=== PATIENT | female | born 1970 | race Caucasian/White ===

== ENCOUNTER → 2017-11-23 15:01 | Outpatient (CLI) | payer OTHER, MEDICAID, SELFPAY ==
--- NOTE | 2017-11-23 15:02 | DI.US.S_ITS ---
ULTRASOUND OF LEFT BREAST: 11/23/2017 CLINICAL: Patient returns today to evaluate a density in the left breast. Comparison is made to exams dated: 11/23/2017 mammogram, 01/13/2017 ultrasound, and 01/13/2017 mammogram - [facility]. Color flow ultrasound of the left breast was performed on the areas of interest. Yu scale images of the real-time examination were reviewed. There is a benign 2.4 x 1.7 x 1.2 cm oval cyst in the left breast at 2 o'clock middle depth. This oval cyst is anechoic. This abnormality is increased in size from the ultrasound dated 01/13/17 where the cyst measured 1.6 x 1.1 x 1.7 cm and correlates as palpated and with mammography findings. Color flow imaging demonstrates that there is no increase in vascularity. There also is a benign 0.9 cm oval cyst in the left breast at 3 o'clock posterior depth. This oval cyst is anechoic. Color flow imaging demonstrates that there is no increase in vascularity. IMPRESSION: BENIGN There is no sonographic evidence of malignancy. The 2.4 cm oval cyst in the left breast at 2 o'clock middle depth is benign. The 0.9 cm oval cyst in the left breast at 3 o'clock posterior depth is benign. A 1 year screening mammogram is recommended. This exam was interpreted at Station ID: [id number]. Electronically Signed By: Renetta Price M.D. lk/:11/23/2017 17:08:45 copy to: BLANCA PERAZA letter sent: Clinical Evaluation Ultrasound BI-RADS: 2 Benign
--- NOTE | 2017-11-23 15:02 | DI.MG.S_ITS ---
UNILATERAL LEFT DIGITAL DIAGNOSTIC MAMMOGRAM 3D/2D POST MASTECTOMY: 11/23/2017 CLINICAL: Left breast lump. Comparison is made to exams dated: 01/13/2017 mammogram, 01/07/2017 mammogram, and 01/05/2016 mammogram - [facility]. The tissue of the left breast is extremely dense, which lowers the sensitivity of mammography. There is a 1.9 cm mass in the left breast at 4 o'clock middle depth. This likely correlates as palpated. No other significant masses or calcifications are seen in the breast. IMPRESSION: INCOMPLETE: NEEDS ADDITIONAL IMAGING EVALUATION The 1.9 cm mass in the left breast is indeterminate. An ultrasound is recommended. This exam was interpreted at Station ID: [id number]. NOTE: For mammograms, a report in lay terms will be sent to the patient. Approximately 15% of breast malignancies will not be visualized mammographically. In the management of a palpable breast mass, a negative mammogram must not discourage biopsy of a clinically suspicious lesion. Electronically Signed By: Renetta Price M.D. lk/:11/23/2017 15:27:54 copy to: BLANCA PERAZA letter sent: Additional Imaging Needed ACR BI-RADS Category 0: Incomplete 3340F
== END ==
PROVIDERS: PCP Family Medicine; Visit Provider Family Medicine
DX: R92.8 Other abnormal and inconclusive findings on diagnostic imaging of breast (principal); N63.20 Unspecified lump in the left breast, unspecified quadrant
CPT/HCPCS: 76642; 77065; G0279

== ENCOUNTER → 2017-11-29 11:34 | Outpatient (CLI) | payer OTHER, MEDICAID, SELFPAY ==
[2017-11-29 11:50] LABS: Add Manual Diff / Slide Review NO; Basophils Percent Auto 1.5 % (0-2); Eosinophils Percent Auto 1.3 % (2-4); Hematocrit 38.8 % (36-46); Hemoglobin 13.1 g/dL (12.0-16.0); Lymphocytes Percent Auto 21.3 % (25-40); Mean Corpuscular HGB Conc 33.8 % (30-36); Mean Corpuscular Hemoglobin 30.9 PG (26-34); Mean Corpuscular Volume 91.6 fL (80-100); Neutrophils Absolute Auto 4200 /uL (3000-5900); Neutrophils Percent Auto 68.9 % (50-75); Platelet Count 258 X10^3/uL (150-400); Red Blood Cell Count 4.24 X10^6/uL (4.0-5.2); Red Cell Distribution Width 12.5 % (11.6-14.8); White Blood Cell Count 6.1 X10^3/uL (4.5-11.0)
[2017-11-29 12:07] LABS: Alanine Aminotransferase 23 IU/L (9-52); Albumin 4.4 g/dL (3.5-5.0); Albumin Globulin Ratio 1.6 (1.0-2.8); Alkaline Phosphatase 43 U/L (38-126); Aspartate Aminotransferase 22 IU/L (14-36); Bilirubin Total 0.5 mg/dL (0.2-1.3); Blood Urea Nitrogen 15 mg/dL (7-17); Calcium 9.4 mg/dL (8.4-10.2); Carbon Dioxide 27 mmol/L (22-32); Chloride 102 mmol/L (98-107); Estimated Glomerular Filt Rate > 60.0 mL/min (>60); Globulin 2.7 g/dL (1.7-4.1); Glucose 106 mg/dL (70-100); HEMOLYSIS < 15 (0-50); Potassium 4.2 mmol/L (3.4-5.1); Sodium 138 mmol/L (137-145); Total Protein 7.1 g/dL (6.3-8.2)
[2017-12-01 15:32] LABS: Cancer Antigen 27.29 23 U/mL (< 38)
== END ==
PROVIDERS: PCP Family Medicine; Visit Provider Nurse Practitioner Gerontology
DX: C50.911 Malignant neoplasm of unspecified site of right female breast (principal)
CPT/HCPCS: 36415; 80053; 85025; 86300

== ENCOUNTER → 2017-11-29 11:55 | Outpatient (CLI) | payer OTHER, MEDICAID, SELFPAY ==
--- NOTE | 2017-11-29 11:57 | DI.US.S_ITS ---
PROCEDURE: US PELVIC COMPLETE INDICATIONS: Irregular menses TECHNIQUE: Real-time scanning was performed of the pelvic organs, with image documentation. Additional endovaginal scanning was necessary due to incomplete visualization of the adnexal and endometrial structures by transabdominal scanning. COMPARISON: [facility], US, PELVIC COMPLETE, 04/02/2014, 12:36. [facility], CT, CHEST/ABD/PEL WITH CONTRAST, 12/04/2013, 12:16. [facility], US, PELVIC COMPLETE, 05/28/2014, 9:03. FINDINGS: Transabdominal scanning: Limited scanning through the kidneys shows no hydronephrosis. No pathologic free abdominal or pelvic fluid. Endovaginal scanning: Uterus: Uterus is normal in size at 7.3 x 4.9 x 5.0 cm. The endometrium measures 15.9 mm in combined thickness. Ovaries: Right ovary measures 30 x 27.3 mm. There is a focus of heteroechogenicity measuring 16 x 23 x 19 mm within the right ovary. Left ovary measures 20 x 10 x 17 mm. IMPRESSION: 1. Complex cyst is present within the right ovary as above. It is noted that simple cyst or prominent follicle is noted within the right ovary on prior exam. Dictated by: Isa Montaño M.D. on 11/29/2017 at 17:43 Approved by: Isa Montaño M.D. on 11/29/2017 at 17:44
== END ==
PROVIDERS: PCP Family Medicine; Visit Provider Family Medicine
DX: N92.6 Irregular menstruation, unspecified (principal); N83.291 Other ovarian cyst, right side
CPT/HCPCS: 76830; 76856

== ENCOUNTER → 2018-07-01 12:34 | Outpatient (CLI) | payer OTHER, MEDICAID, SELFPAY ==
[2018-07-01 13:08] LABS: Add Manual Diff / Slide Review NO; Basophils Absolute Auto 100 /uL (0-100); Eosinophils Absolute Auto 300 /uL (0-450); Eosinophils Percent Auto 3.9 % (2-4); Hematocrit 38.7 % (36-46); Hemoglobin 12.8 g/dL (12.0-16.0); Lymphocytes Absolute Auto 1800 /uL (1100-4500); Lymphocytes Percent Auto 23.6 % (25-40); Mean Corpuscular Hemoglobin 30.3 PG (26-34); Mean Corpuscular Volume 91.8 fL (80-100); Monocytes Absolute Auto 500 /uL (0-900); Monocytes Percent Auto 6.4 % (3-14); Neutrophils Absolute Auto 5000 /uL (1500-7000); Neutrophils Percent Auto 65.1 % (50-75); Platelet Count 301 X10^3/uL (150-400); Red Blood Cell Count 4.21 X10^6/uL (4.0-5.2); White Blood Cell Count 7.7 X10^3/uL (4.5-11.0)
[2018-07-01 13:20] LABS: Alanine Aminotransferase 25 IU/L (9-52); Albumin 4.4 g/dL (3.5-5.0); Albumin Globulin Ratio 1.5 (1.0-2.8); Alkaline Phosphatase 49 U/L (38-126); Aspartate Aminotransferase 22 IU/L (14-36); Bilirubin Total 0.3 mg/dL (0.2-1.3); Blood Urea Nitrogen 13 mg/dL (7-17); Calcium 9.3 mg/dL (8.4-10.2); Carbon Dioxide 27 mmol/L (22-32); Chloride 100 mmol/L (98-107); Estimated Glomerular Filt Rate > 60.0 mL/min (>60); Globulin 2.9 g/dL (1.7-4.1); Glucose 77 mg/dL (70-100); HEMOLYSIS < 15 (0-50); Potassium 3.7 mmol/L (3.4-5.1); Sodium 138 mmol/L (137-145); Total Protein 7.3 g/dL (6.3-8.2)
[2018-07-04 16:45] LABS: Cancer Antigen 27.29 20 U/mL (< 38)
== END ==
PROVIDERS: PCP Family Medicine; Visit Provider Nurse Practitioner Gerontology
DX: D05.10 Intraductal carcinoma in situ of unspecified breast (principal)
CPT/HCPCS: 36415; 80053; 85025; 86300

== ENCOUNTER → 2018-11-24 15:02 | Outpatient (CLI) | payer OTHER, MEDICAID, SELFPAY ==
--- NOTE | 2018-11-24 | DI.MG.S_ITS ---
UNILATERAL LEFT DIGITAL SCREENING MAMMOGRAM 3D/2D WITH CAD: 11/24/2018 CLINICAL: Routine screening. Personal history of right breast cancer. Comparison is made to exams dated: 11/23/2017 mammogram, 01/13/2017 mammogram, and 01/07/2017 mammogram - [facility]. The tissue of left breast is extremely dense, which lowers the sensitivity of mammography. Current study was also evaluated with a Computer Aided Detection (CAD) system. No significant masses, calcifications, or other findings are seen in the breast. There has been no significant interval change. IMPRESSION: NEGATIVE There is no mammographic evidence of malignancy. A 1 year screening mammogram is recommended. This exam was interpreted at Station ID: [id number]. NOTE: For mammograms, a report in lay terms will be sent to the patient. Approximately 15% of breast malignancies will not be visualized mammographically. In the management of a palpable breast mass, a negative mammogram must not discourage biopsy of a clinically suspicious lesion. Electronically Signed By: Sunny franz/pieter:11/24/2018 16:57:02 copy to: BLANCA PERAZA letter sent: Normal Exam ACR BI-RADS Category 1: Negative [id number]
== END ==
PROVIDERS: Family Provider Nurse Practitioner Gerontology; PCP Family Medicine; Visit Provider Family Medicine
DX: Z12.31 Encounter for screening mammogram for malignant neoplasm of breast (principal); Z85.3 Personal history of malignant neoplasm of breast
CPT/HCPCS: 77063; 77067

== ENCOUNTER → 2019-01-03 13:40 | Outpatient (CLI) | payer OTHER, MEDICAID, SELFPAY ==
[2019-01-03 13:52] LABS: Add Manual Diff / Slide Review NO; Basophils Absolute Auto 100 /uL (0-100); Basophils Percent Auto 1.1 % (0-2); Eosinophils Absolute Auto 200 /uL (0-450); Eosinophils Percent Auto 2.7 % (2-4); Hematocrit 37.7 % (36-46); Lymphocytes Absolute Auto 1800 /uL (1100-4500); Lymphocytes Percent Auto 26.7 % (25-40); Mean Corpuscular HGB Conc 34.5 % (30-36); Mean Corpuscular Hemoglobin 31.1 PG (26-34); Mean Corpuscular Volume 90.3 fL (80-100); Monocytes Absolute Auto 600 /uL (0-900); Neutrophils Absolute Auto 4100 /uL (1500-7000); Neutrophils Percent Auto 60.5 % (50-75); Platelet Count 225 X10^3/uL (150-400); Red Blood Cell Count 4.18 X10^6/uL (4.0-5.2); Red Cell Distribution Width 12.4 % (11.6-14.8); White Blood Cell Count 6.7 X10^3/uL (4.5-11.0)
[2019-01-03 14:09] LABS: Alanine Aminotransferase 18 IU/L (9-52); Albumin 4.3 g/dL (3.5-5.0); Albumin Globulin Ratio 1.5 (1.0-2.8); Alkaline Phosphatase 42 U/L (38-126); Aspartate Aminotransferase 24 IU/L (14-36); Bilirubin Total 0.4 mg/dL (0.2-1.3); Blood Urea Nitrogen 15 mg/dL (7-17); Calcium 9.3 mg/dL (8.4-10.2); Carbon Dioxide 30 mmol/L (22-32); Chloride 100 mmol/L (98-107); Estimated Glomerular Filt Rate > 60.0 mL/min (>60); Globulin 2.8 g/dL (1.7-4.1); Glucose 80 mg/dL (70-100); HEMOLYSIS < 15 (0-50); Potassium 4.1 mmol/L (3.4-5.1); Sodium 138 mmol/L (137-145); Total Protein 7.1 g/dL (6.3-8.2)
== END ==
PROVIDERS: PCP Family Medicine
DX: D05.10 Intraductal carcinoma in situ of unspecified breast (principal)
CPT/HCPCS: 36415; 80053; 85025

== ENCOUNTER → 2019-01-09 13:00 | Oncology outpatient (ONC) | payer OTHER, MEDICAID, SELFPAY ==
--- NOTE | 2017-12-05 08:18 | ONC.APRN.PN ---
Assessment and Plan (1) Ductal carcinoma in situ (DCIS) of breast Onset Date: 09/04/13 Problem details: ER neg, CO neg, KI-67 high 50%, HER-2, positive 3+, negative for P63,Actin,myosin Current visit: No Status: None 12/05/17 08:20 The patient is a 46 year old Female who is being seen in the clinic 12/05/2017 for 6 month follow up. Leticia remains in survelliance for right-sided microinvasive ERCB 2 like breast cancer (T equal to 1 mm). Patient remains in clinical remission since her diagnosis was made in 2013. No clinical signs or symptoms of disease recurrence on exam today. She does have palpable pinpoint soft mass in her left breast at the 2 o'clock position which does correlate with ultrasound. I have instructed patient to continue with monthly self breast exams return to clinic for any changes. Otherwise return to clinic in 6 months time at which time we will repeat left breast exam. Any further changes we will discuss another diagnostic mammogram at 6 months versus continuing with annual screening. Reassuringly CBC CMP unremarkable. CA 27-29 remains low at 23. Patient agrees with the above plan of care. Will work on sleep hygiene which we reviewed at todays visit. Follow-up with Gynecology regarding right ovarian cyst identified on pelvic ultrasound. Primary care has sent a referral for gynecology. 12/05/17 11:48 - Time Spent with Patient 35 mins PN -Subjective Interval history: The patient is a 46 year old Female who is being seen in the clinic 06/08/17 for 6 month follow up. Leticia remains in survelliance for right-sided microinvasive ERCB 2 like breast cancer (T equal to 1 mm). S/P right mastectomy. Patient remains in clinical remission since her diagnosis was made in 2013. Leticia had noticed some changes in her left breast specificaly feeling more lumpy. She was evaluated by her primary care provider who ordered diagnostic unilateral left breast mammogram. Mammogram identified a 1.9 cm mass in the left breast at 4 o'clock. Patient then went on for ultrasound of left breast which was without evidence of malignancy. Ultrasound identified a 2.4 cm oval cyst in the left breast at 2 o'clock. Also a 0.9 cm oval cyst in the left breast at 3 o'clock. Patient also underwent a pelvic ultrasound due to irregular menses. Complex cyst was identified within the right ovary. Her primary care provider has set the patient up for referral to gynecology today. 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 Having some anxiety also not sleeping well. 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 She is working on sleep hygiene. She is self proclaimed night owl she is trying to exercise more and get in a good night time routine to accommodate better sleep. As noted above. Irregular. Not having any hot flashes. Activity tolerance is very good. Appetite is stable. No new pain. No new lumps or bumps. No headaches. No change in bladder or bowel habits. Past Medical History The patient's past medical history is significant for: 1) Right-sided microinvasive breast cancer. Diagnosis age 43. Diagnosis surgery: 08/29/2013. Stereotactic core needle biopsy. 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 ER positive at 2%. 10/11/2013. Partial mastectomy. Pathology confirming extensive high-grade DCIS measuring 15 mm. In addition microinvasion identified measuring 1 mm. IHC on the invasive compounded were negative for ER and CO receptor. Ki-67 50%. HER-2 3+. 11/01/2016. Reexcision with sentinel node procedure. Margins clear. Or sentinel lymph nodes identified all negative for disease. 01/03/2015. Right-sided simple mastectomy. Pathology confirming residual DCIS high-grade measuring up to 22 mm. Posterior surgical margin clear. No evidence of invasive disease. Clinical staging workup: 12/04/2013. CT chest abdomen pelvis with contrast. No evidence of metastatic disease. 12/04/2013. Bone scan full-body. No evidence of metastatic disease. 12/11/2013. MRI of the breast. Left breast showing no focal abnormality. Right breast showing abnormal enhancement involving the parenchymal upper outer and upper inner quadrant extending from the chest wall anterior to just below the nipple. No axillary adenopathy seen Prognosis/risk factors: Father with a known BRCA1 (3829 delT) mutation. 11/27/2013. Patient genetically tested for this mutation through [employer]. No mutation detected. Patient also tested for BRCA1 and BRCA2. The mutation identified. Surveillance: Yearly left-sided mammogram typically occurring in December. Results - Imaging Additional studies: Procedures Subtotal mastectomy (10/11/13) Unilateral simple mastectomy (01/03/14) Home Medications and Allergies Home Medications Medication Instructions Recorded Confirmed Type cholecalciferol (vitamin D3) 1,000 unit PO DAILY 12/05/17 12/05/17 History [Vitamin D3] melatonin 5 mg PO BEDTIME PRN 12/05/17 12/05/17 History Allergies Allergy/AdvReac Type Severity Reaction Status Date / Time No Known Drug Allergies Allergy Verified 11/10/17 13:54 Exam Narrative: well appearing - Constitutional positive no acute distress - Routine HEENT Exam Head: Present: normocephalic, atraumatic Eye: Present: EOMI, PERRL, normal accommodation. Absent: conjunctival icterus, scleral injection ENT: Present: mucous membranes moist, oropharynx clear - Routine Neck Exam Present: supple. Absent: lymphadenopathy - Routine Chest/Breast/Axilla Exam Chest wall exam standard: Absent: tenderness, mass Breast: Present: mass, right mastectomy. Absent: tenderness, induration Axillae: Absent: lymphadenopathy, mass, tenderness Comments: small pinpoint soft mass left breast 2:00 correlates with left breast ultrasound. Non tender, no skin changes, no nipple discharge, no axillary adenopathy. - Routine Respiratory Exam Present: Clear to auscultation bilaterally - Routine Cardiovascular Exam Present: RRR, S1, S2 - Routine Abdominal Exam Present: soft, normoactive bowel sounds. Absent: tenderness, organomegaly - Routine Extremities Exam Absent: edema, calf tenderness - Routine Skin Exam Present: intact, normal turgor. Absent: petechiae - Routine Neurological Exam Present: alert, oriented X3 - Routine Psychiatric Exam Present: normal affect
[2017-12-05 11:06] VITALS: BP 125/80; PULSE 76; RESP 18; TEMP 36.2; O2SAT 100
--- NOTE | 2018-07-04 10:03 | PC.NURSE ---
labs stable, provider visit 07/11
[2018-07-11 15:53] VITALS: BP 139/86; PULSE 80; RESP 18; TEMP 36.3; O2SAT 99
--- NOTE | 2018-07-11 16:26 | ONC.APRN.PN ---
PN -Subjective Interval history: The patient is a 48 year old Female who is being seen in the clinic 07/11/2018 for 6 month follow up. Leticia remains in survelliance for right-sided microinvasive ERCB 2 like breast cancer (T equal to 1 mm). S/P right mastectomy. Patient remains in clinical remission since her diagnosis was made in 2013. Most recent unilateral mammogram was November 2017 which was without evidence of malignancy. Patient offers no changes in her health since previous visit. She states she is just getting over a cold. She denies any new lumps or bumps, no unexplained pain. No headaches. No skin changes. No change in activity tolerance, no change in appetite, weight is stable. Specifically no early satiety. No issues with bladder or bowels. Past Medical History The patient's past medical history is significant for: 1) Right-sided microinvasive breast cancer. Diagnosis age 43. Diagnosis surgery: 08/29/2013. Stereotactic core needle biopsy. 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 ER positive at 2%. 10/11/2013. Partial mastectomy. Pathology confirming extensive high-grade DCIS measuring 15 mm. In addition microinvasion identified measuring 1 mm. IHC on the invasive compounded were negative for ER and CO receptor. Ki-67 50%. HER-2 3+. 11/01/2016. Reexcision with sentinel node procedure. Margins clear. Or sentinel lymph nodes identified all negative for disease. 01/03/2015. Right-sided simple mastectomy. Pathology confirming residual DCIS high-grade measuring up to 22 mm. Posterior surgical margin clear. No evidence of invasive disease. Clinical staging workup: 12/04/2013. CT chest abdomen pelvis with contrast. No evidence of metastatic disease. 12/04/2013. Bone scan full-body. No evidence of metastatic disease. 12/11/2013. MRI of the breast. Left breast showing no focal abnormality. Right breast showing abnormal enhancement involving the parenchymal upper outer and upper inner quadrant extending from the chest wall anterior to just below the nipple. No axillary adenopathy seen Prognosis/risk factors: Father with a known BRCA1 (3829 delT) mutation. 11/27/2013. Patient genetically tested for this mutation through [employer]. No mutation detected. Patient also tested for BRCA1 and BRCA2. The mutation identified. Surveillance: Yearly left-sided mammogram typically occurring in December. Home Medications and Allergies Home Medications Medication Instructions Recorded Confirmed Type cholecalciferol (vitamin D3) 1,000 unit PO DAILY 12/05/17 12/05/17 History [Vitamin D3] melatonin 5 mg PO BEDTIME PRN 12/05/17 12/05/17 History Allergies Allergy/AdvReac Type Severity Reaction Status Date / Time No Known Drug Allergies Allergy Verified 11/10/17 13:54 Exam Vital signs: Vital Signs Temp Pulse Resp BP Pulse Ox 07/11/18 15:53 97.3 F L 80 18 139/86 99 Intake and Output 07/11/18 07/11/18 07/11/18 07:59 15:59 23:59 Other: Weight 67.4 kg Patient Weight 07/12/18 07:59 Weight 67.4 kg - Constitutional positive no acute distress - Routine HEENT Exam Eye: Present: conjunctivae pink. Absent: conjunctival icterus, scleral injection - Routine Neck Exam Present: supple. Absent: lymphadenopathy - Routine Chest/Breast/Axilla Exam Chest wall exam standard: Absent: tenderness, mass Breast: Present: right mastectomy. Absent: tenderness, induration, mass Axillae: Absent: lymphadenopathy, mass, tenderness - Routine Respiratory Exam Present: Clear to auscultation bilaterally. Absent: rales, rhonchi, wheezes - Routine Cardiovascular Exam Present: RRR, S1, S2. Absent: murmur, gallop, rubs, JVD - Routine Abdominal Exam Present: soft, normoactive bowel sounds. Absent: tenderness, distended, organomegaly - Routine Extremities Exam Absent: edema, calf tenderness - Routine Skin Exam Present: intact, normal turgor - Routine Neurological Exam Present: alert, oriented X3 - Routine Psychiatric Exam Present: normal affect Results - Imaging Additional studies: Procedures Subtotal mastectomy (10/11/13) Unilateral simple mastectomy (01/03/14) Assessment and Plan (1) Ductal carcinoma in situ (DCIS) of breast Onset Date: 09/04/13 Problem details: ER neg, CO neg, KI-67 high 50%, HER-2, positive 3+, negative for P63,Actin,myosin Current visit: No Status: Acute The patient is a 48-year-old female who carries a diagnosis of ER negative, CO negative, HER2 negative right breast cancer. Reassuringly on exam today she has no clinical signs or symptoms to suggest disease recurrence. Unilateral mammogram November 2017 was without evidence of malignancy. CBC, CMP unremarkable, CA 27-29 remains appropriately low at 20. Continue with annual screening unilateral mammograms which will be due this November. Return to clinic in 6 months time for provider visit, CBC, CMP, CA 27-29.
--- NOTE | 2018-07-11 16:31 | P.PNONC_ITS ---
PN -Subjective Interval history: The patient is a 48 year old Female who is being seen in the clinic 07/11/2018 for 6 month follow up. Leticia remains in survelliance for right-sided microinvasive ERCB 2 like breast cancer (T equal to 1 mm). S/P right mastectomy. Patient remains in clinical remission since her diagnosis was made in 2013. Most recent unilateral mammogram was November 2017 which was without evidence of malignancy. Patient offers no changes in her health since previous visit. She states she is just getting over a cold. She denies any new lumps or bumps, no unexplained pain. No headaches. No skin changes. No change in activity tolerance, no change in appetite, weight is stable. Specifically no early satiety. No issues with bladder or bowels. Past Medical History The patient's past medical history is significant for: 1) Right-sided microinvasive breast cancer. Diagnosis age 43. Diagnosis surgery: 08/29/2013. Stereotactic core needle biopsy. 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 ER positive at 2%. 10/11/2013. Partial mastectomy. Pathology confirming extensive high-grade DCIS measuring 15 mm. In addition microinvasion identified measuring 1 mm. IHC on the invasive compounded were negative for ER and NC receptor. Ki-67 50%. HER-2 3+. 11/01/2016. Reexcision with sentinel node procedure. Margins clear. Or sentinel lymph nodes identified all negative for disease. 01/03/2015. Right-sided simple mastectomy. Pathology confirming residual DCIS high-grade measuring up to 22 mm. Posterior surgical margin clear. No evidence of invasive disease. Clinical staging workup: 12/04/2013. CT chest abdomen pelvis with contrast. No evidence of metastatic disease. 12/04/2013. Bone scan full-body. No evidence of metastatic disease. 12/11/2013. MRI of the breast. Left breast showing no focal abnormality. Right breast showing abnormal enhancement involving the parenchymal upper outer and upper inner quadrant extending from the chest wall anterior to just below the nipple. No axillary adenopathy seen Prognosis/risk factors: Father with a known BRCA1 (3829 delT) mutation. 11/27/2013. Patient genetically tested for this mutation through [employer]. No mutation detected. Patient also tested for BRCA1 and BRCA2. The mutation identified. Surveillance: Yearly left-sided mammogram typically occurring in December. Home Medications and Allergies Home Medications Medication Instructions Recorded Confirmed Type cholecalciferol (vitamin D3) 1,000 unit PO DAILY 12/05/17 12/05/17 History [Vitamin D3] melatonin 5 mg PO BEDTIME PRN 12/05/17 12/05/17 History Allergies Allergy/AdvReac Type Severity Reaction Status Date / Time No Known Drug Allergies Allergy Verified 11/10/17 13:54 Exam Vital signs: Vital Signs Temp Pulse Resp BP Pulse Ox 07/11/18 15:53 97.3 F L 80 18 139/86 99 Intake and Output 07/11/18 07/11/18 07/11/18 07:59 15:59 23:59 Other: Weight 67.4 kg Patient Weight 07/12/18 07:59 Weight 67.4 kg - Constitutional positive no acute distress - Routine HEENT Exam Eye: Present: conjunctivae pink. Absent: conjunctival icterus, scleral injection - Routine Neck Exam Present: supple. Absent: lymphadenopathy - Routine Chest/Breast/Axilla Exam Chest wall exam standard: Absent: tenderness, mass Breast: Present: right mastectomy. Absent: tenderness, induration, mass Axillae: Absent: lymphadenopathy, mass, tenderness - Routine Respiratory Exam Present: Clear to auscultation bilaterally. Absent: rales, rhonchi, wheezes - Routine Cardiovascular Exam Present: RRR, S1, S2. Absent: murmur, gallop, rubs, JVD - Routine Abdominal Exam Present: soft, normoactive bowel sounds. Absent: tenderness, distended, organomegaly - Routine Extremities Exam Absent: edema, calf tenderness - Routine Skin Exam Present: intact, normal turgor - Routine Neurological Exam Present: alert, oriented X3 - Routine Psychiatric Exam Present: normal affect Results - Imaging Additional studies: Procedures Subtotal mastectomy (10/11/13) Unilateral simple mastectomy (01/03/14) Assessment and Plan (1) Ductal carcinoma in situ (DCIS) of breast Onset Date: 09/04/13 Problem details: ER neg, NC neg, KI-67 high 50%, HER-2, positive 3+, negative for P63,Actin,myosin Current visit: No Status: Acute The patient is a 48-year-old female who carries a diagnosis of ER negative, NC negative, HER2 negative right breast cancer. Reassuringly on exam today she has no clinical signs or symptoms to suggest disease recurrence. Unilateral mammogram November 2017 was without evidence of malignancy. CBC, CMP unremarkable, CA 27-29 remains appropriately low at 20. Continue with annual screening unilateral mammograms which will be due this November. Return to clinic in 6 months time for provider visit, CBC, CMP, CA 27-29.
[2019-01-09 13:03] VITALS: BP 121/78; PULSE 71; RESP 16; TEMP 37.1; O2SAT 100
--- NOTE | 2019-01-09 13:25 | ONC.PN ---
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 That area was ER negative. She did not have any radiation or hormone therapy. Since her last visit, she has been feeling generally well. She has no specific complaints today. She has not noticed any changes in the chest wall or in the left breast. She has not noticed any adenopathy. No new aches or pains. No fevers chills or sweats. Appetite and energy level have been good. No shortness of breath or cough. She denies any other changes in her health. She is otherwise quite healthy. She is not taking any prescription medications. Past Medical History The patient's past medical history is significant for: 1) Right-sided microinvasive breast cancer. Diagnosis age 43. Diagnosis surgery: 08/29/2013. Stereotactic core needle biopsy. 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 ER positive at 2%. 10/11/2013. Partial mastectomy. Pathology confirming extensive high-grade DCIS measuring 15 mm. In addition microinvasion identified measuring 1 mm. IHC on the invasive compounded were negative for ER and LA receptor. Ki-67 50%. HER-2 3+. 11/01/2016. Reexcision with sentinel node procedure. Margins clear. Or sentinel lymph nodes identified all negative for disease. 01/03/2015. Right-sided simple mastectomy. Pathology confirming residual DCIS high-grade measuring up to 22 mm. Posterior surgical margin clear. No evidence of invasive disease. Prognosis/risk factors: Father with a known BRCA1 (3829 delT) mutation. 11/27/2013. Patient genetically tested for this mutation through [employer]. No mutation detected. Patient also tested for BRCA1 and BRCA2. The mutation identified. Surveillance: Yearly left-sided mammogram typically occurring in December. Home Medications and Allergies Home Medications Medication Instructions Recorded Confirmed Type cholecalciferol (vitamin D3) 1,000 unit PO DAILY 12/05/17 01/09/19 History [Vitamin D3] melatonin 5 mg PO BEDTIME PRN 12/05/17 01/09/19 History Allergies Allergy/AdvReac Type Severity Reaction Status Date / Time No Known Drug Allergies Allergy Verified 11/10/17 13:54 Exam Vital signs: Vital Signs Temp Pulse Resp BP Pulse Ox 01/09/19 13:03 98.7 F 71 16 121/78 100 Intake and Output 01/08/19 01/09/19 01/09/19 23:59 07:59 15:59 Other: Weight 68.7 kg Patient Weight 01/09/19 23:59 Weight 68.7 kg - Constitutional positive no acute distress, positive average body habitus - Routine HEENT Exam Head: Present: normocephalic, atraumatic Eye: Present: EOMI, PERRL. Absent: conjunctival icterus, scleral injection ENT: Present: mucous membranes moist, oropharynx clear - Routine Neck Exam Present: supple. Absent: lymphadenopathy, thyromegaly - Routine Chest/Breast/Axilla Exam Breast: Present: right mastectomy Comments: No masses in the left breast. No axillary adenopathy on either side. - Routine Respiratory Exam Present: Clear to auscultation bilaterally. Absent: rales, wheezes - Routine Cardiovascular Exam Present: RRR, S1, S2. Absent: murmur - Routine Abdominal Exam Present: soft, normoactive bowel sounds. Absent: tenderness, organomegaly, mass - Routine Extremities Exam Absent: cyanosis, clubbing, edema - Routine Back/Spine Exam Back/Spine: Absent: vertebral tenderness - Routine Skin Exam Present: intact. Absent: petechiae, rash - Routine Neurological Exam Present: alert, oriented X3 - Routine Psychiatric Exam Present: normal affect, normal thought process Results - Imaging Additional studies: Procedures Subtotal mastectomy (10/11/13) Unilateral simple mastectomy (01/03/14) Assessment and Plan (1) Ductal carcinoma in situ (DCIS) of breast Onset Date: 09/04/13 Problem details: ER neg, LA neg, KI-67 high 50%, HER-2, positive 3+, negative for P63,Actin,myosin Current visit: No Status: Acute The patient is a 48-year-old female who carries a diagnosis of ER negative, LA negative, HER2 negative right breast cancer. She is now more than 5 years out from her diagnosis. She has no evidence of disease and is doing well. At this point, she should have an annual mammogram and breast exam. The patient would prefer to do this with her primary provider. I will not schedule a follow-up appointment for her but would be happy to see her again in the future should new problems arise.
--- NOTE | 2019-01-09 13:28 | P.PNONC_ITS ---
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 That area was ER negative. She did not have any radiation or hormone therapy. Since her last visit, she has been feeling generally well. She has no specific complaints today. She has not noticed any changes in the chest wall or in the left breast. She has not noticed any adenopathy. No new aches or pains. No fevers chills or sweats. Appetite and energy level have been good. No shortness of breath or cough. She denies any other changes in her health. She is otherwise quite healthy. She is not taking any prescription medications. Past Medical History The patient's past medical history is significant for: 1) Right-sided microinvasive breast cancer. Diagnosis age 43. Diagnosis surgery: 08/29/2013. Stereotactic core needle biopsy. 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 ER positive at 2%. 10/11/2013. Partial mastectomy. Pathology confirming extensive high-grade DCIS measuring 15 mm. In addition microinvasion identified measuring 1 mm. IHC on the invasive compounded were negative for ER and NE receptor. Ki-67 50%. HER-2 3+. 11/01/2016. Reexcision with sentinel node procedure. Margins clear. Or sentinel lymph nodes identified all negative for disease. 01/03/2015. Right-sided simple mastectomy. Pathology confirming residual DCIS high-grade measuring up to 22 mm. Posterior surgical margin clear. No evidence of invasive disease. Prognosis/risk factors: Father with a known BRCA1 (3829 delT) mutation. 11/27/2013. Patient genetically tested for this mutation through [employer]. No mutation detected. Patient also tested for BRCA1 and BRCA2. The mutation identified. Surveillance: Yearly left-sided mammogram typically occurring in December. Home Medications and Allergies Home Medications Medication Instructions Recorded Confirmed Type cholecalciferol (vitamin D3) 1,000 unit PO DAILY 12/05/17 01/09/19 History [Vitamin D3] melatonin 5 mg PO BEDTIME PRN 12/05/17 01/09/19 History Allergies Allergy/AdvReac Type Severity Reaction Status Date / Time No Known Drug Allergies Allergy Verified 11/10/17 13:54 Exam Vital signs: Vital Signs Temp Pulse Resp BP Pulse Ox 01/09/19 13:03 98.7 F 71 16 121/78 100 Intake and Output 01/08/19 01/09/19 01/09/19 23:59 07:59 15:59 Other: Weight 68.7 kg Patient Weight 01/09/19 23:59 Weight 68.7 kg - Constitutional positive no acute distress, positive average body habitus - Routine HEENT Exam Head: Present: normocephalic, atraumatic Eye: Present: EOMI, PERRL. Absent: conjunctival icterus, scleral injection ENT: Present: mucous membranes moist, oropharynx clear - Routine Neck Exam Present: supple. Absent: lymphadenopathy, thyromegaly - Routine Chest/Breast/Axilla Exam Breast: Present: right mastectomy Comments: No masses in the left breast. No axillary adenopathy on either side. - Routine Respiratory Exam Present: Clear to auscultation bilaterally. Absent: rales, wheezes - Routine Cardiovascular Exam Present: RRR, S1, S2. Absent: murmur - Routine Abdominal Exam Present: soft, normoactive bowel sounds. Absent: tenderness, organomegaly, mass - Routine Extremities Exam Absent: cyanosis, clubbing, edema - Routine Back/Spine Exam Back/Spine: Absent: vertebral tenderness - Routine Skin Exam Present: intact. Absent: petechiae, rash - Routine Neurological Exam Present: alert, oriented X3 - Routine Psychiatric Exam Present: normal affect, normal thought process Results - Imaging Additional studies: Procedures Subtotal mastectomy (10/11/13) Unilateral simple mastectomy (01/03/14) Assessment and Plan (1) Ductal carcinoma in situ (DCIS) of breast Onset Date: 09/04/13 Problem details: ER neg, NE neg, KI-67 high 50%, HER-2, positive 3+, negative for P63,Actin,myosin Current visit: No Status: Acute The patient is a 48-year-old female who carries a diagnosis of ER negative, NE negative, HER2 negative right breast cancer. She is now more than 5 years out from her diagnosis. She has no evidence of disease and is doing well. At this point, she should have an annual mammogram and breast exam. The patient would prefer to do this with her primary provider. I will not schedule a follow-up appointment for her but would be happy to see her again in the future should new problems arise.
--- NOTE | 2019-01-09 14:07 | ONC.PN ---
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 That area was ER negative. She did not have any radiation or hormone therapy. Since her last visit, she has been feeling generally well. She has no specific complaints today. She has not noticed any changes in the chest wall or in the left breast. She has not noticed any adenopathy. No new aches or pains. No fevers chills or sweats. Appetite and energy level have been good. No shortness of breath or cough. She denies any other changes in her health. She is otherwise quite healthy. She is not taking any prescription medications. Past Medical History The patient's past medical history is significant for: 1) Right-sided microinvasive breast cancer. Diagnosis age 43. Diagnosis surgery: 08/29/2013. Stereotactic core needle biopsy. 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 ER positive at 2%. 10/11/2013. Partial mastectomy. Pathology confirming extensive high-grade DCIS measuring 15 mm. In addition microinvasion identified measuring 1 mm. IHC on the invasive compounded were negative for ER and OH receptor. Ki-67 50%. HER-2 3+. 11/01/2016. Reexcision with sentinel node procedure. Margins clear. Or sentinel lymph nodes identified all negative for disease. 01/03/2015. Right-sided simple mastectomy. Pathology confirming residual DCIS high-grade measuring up to 22 mm. Posterior surgical margin clear. No evidence of invasive disease. Prognosis/risk factors: Father with a known BRCA1 (3829 delT) mutation. 11/27/2013. Patient genetically tested for this mutation through [employer]. No mutation detected. Patient also tested for BRCA1 and BRCA2. The mutation identified. Surveillance: Yearly left-sided mammogram typically occurring in December. Home Medications and Allergies Home Medications Medication Instructions Recorded Confirmed Type cholecalciferol (vitamin D3) 1,000 unit PO DAILY 12/05/17 01/09/19 History [Vitamin D3] melatonin 5 mg PO BEDTIME PRN 12/05/17 01/09/19 History Allergies Allergy/AdvReac Type Severity Reaction Status Date / Time No Known Drug Allergies Allergy Verified 11/10/17 13:54 Exam Vital signs: Vital Signs Temp Pulse Resp BP Pulse Ox 01/09/19 13:03 98.7 F 71 16 121/78 100 Intake and Output 01/08/19 01/09/19 01/09/19 23:59 07:59 15:59 Other: Weight 68.7 kg Patient Weight 01/09/19 23:59 Weight 68.7 kg Results - Imaging Additional studies: Procedures Subtotal mastectomy (10/11/13) Unilateral simple mastectomy (01/03/14) Assessment and Plan (1) Ductal carcinoma in situ (DCIS) of breast Onset Date: 09/04/13 Problem details: ER neg, OH neg, KI-67 high 50%, HER-2, positive 3+, negative for P63,Actin,myosin Current visit: No Status: Acute The patient is a 48-year-old female who carries a diagnosis of ER negative, OH negative, HER2 negative right breast cancer. She is now more than 5 years out from her diagnosis. She has no evidence of disease and is doing well. At this point, she should have an annual mammogram and breast exam. The patient would prefer to do this with her primary provider. I will not schedule a follow-up appointment for her but would be happy to see her again in the future should new problems arise.
== END ==
PROVIDERS: PCP Family Medicine
DX: Z09 Encounter for follow-up examination after completed treatment for conditions other than malignant neoplasm (principal); Z86.000 Personal history of in-situ neoplasm of breast; Z90.11 Acquired absence of right breast and nipple
CPT/HCPCS: 99214

== ENCOUNTER → 2019-11-02 07:07 | Outpatient (CLI) | payer OTHER, MEDICAID, SELFPAY ==
--- NOTE | 2019-11-02 07:10 | DI.US.S_ITS ---
PROCEDURE: US SOFT TISSUE HEAD AND NECK INDICATIONS: NECK PRESSURE TECHNIQUE: Real-time scanning was performed of the neck region of interest, with image documentation. COMPARISON: None. FINDINGS: No sonographic abnormality visualized in the region of interest involving the right neck. Comparison of the midline and left neck also performed. IMPRESSION: No sonographic abnormality demonstrated. If symptoms persist, consider contrast-enhanced soft tissue neck CT for further assessment. Dictated by: Lam WESTBROOK Interpreted: Joel Montiel MD on 11/02/2019 at 8:31 Approved by: Joel Montiel M.D. on 11/02/2019 at 9:28
[2019-11-02 08:26] LABS: Add Manual Diff / Slide Review NO; Basophils Absolute Auto 0 /uL (0-100); Basophils Percent Auto 0.8 % (0-2); Eosinophils Absolute Auto 300 /uL (0-450); Eosinophils Percent Auto 4.7 % (2-4); Hematocrit 37.5 % (36-46); Lymphocytes Absolute Auto 1900 /uL (1100-4500); Lymphocytes Percent Auto 31.8 % (25-40); Mean Corpuscular HGB Conc 34.7 % (30-36); Mean Corpuscular Hemoglobin 32.1 PG (26-34); Mean Corpuscular Volume 92.5 fL (80-100); Monocytes Absolute Auto 500 /uL (0-900); Monocytes Percent Auto 8.2 % (3-14); Neutrophils Absolute Auto 3200 /uL (1500-7000); Neutrophils Percent Auto 54.5 % (50-75); Platelet Count 247 X10^3/uL (150-400); Red Blood Cell Count 4.05 X10^6/uL (4.0-5.2); Red Cell Distribution Width 12.5 % (11.6-14.8); White Blood Cell Count 5.9 X10^3/uL (4.5-11.0)
[2019-11-02 08:42] LABS: Cholesterol 214 mg/dL (140-199); HDL Cholesterol 76 mg/dL (40-60); LDL Cholesterol Calculated 118 mg/dL (<100); Triglycerides 98 mg/dL (35-150)
== END ==
PROVIDERS: PCP Family Medicine; Referring Provider Nurse Practitioner Family; Visit Provider Nurse Practitioner Family
DX: D05.10 Intraductal carcinoma in situ of unspecified breast (principal); M54.2 Cervicalgia; Z13.220 Encounter for screening for lipoid disorders
CPT/HCPCS: 36415; 76536; 80061; 85025

== ENCOUNTER → 2019-12-28 10:10 | Outpatient (CLI) | payer OTHER, MEDICAID, SELFPAY ==
--- NOTE | 2019-12-28 | DI.MG.S_ITS ---
UNILATERAL LEFT DIGITAL SCREENING MAMMOGRAM 3D/2D WITH CAD POST MASTECTOMY: 12/28/2019 CLINICAL: Routine screening. Personal history of right breast cancer. Post right mastectomy. Comparison is made to exams dated: 11/24/2018 mammogram, 11/23/2017 mammogram, 01/13/2017 mammogram, 01/07/2017 mammogram, and 01/05/2016 mammogram - [facility]. The tissue of left breast is extremely dense, which lowers the sensitivity of mammography. Current study was also evaluated with a Computer Aided Detection (CAD) system. There are stable benign calcifications in the left breast. No significant masses, calcifications, or other findings are seen in the breast. There has been no significant interval change. IMPRESSION: BENIGN There is no mammographic evidence of malignancy. A 1 year screening mammogram is recommended. This exam was interpreted at Station ID: [id number]. NOTE: For mammograms, a report in lay terms will be sent to the patient. Approximately 15% of breast malignancies will not be visualized mammographically. In the management of a palpable breast mass, a negative mammogram must not discourage biopsy of a clinically suspicious lesion. Electronically Signed By: Joel jackson/pieter:12/28/2019 11:04:16 copy to: NITA FERNÁNDEZ letter sent: Normal Exam ACR BI-RADS Category 2: Benign Finding(s) [id number]
[2019-12-31 19:06] LABS: Fecal Immunochemical Test Negative (Negative)
== END ==
PROVIDERS: PCP Family Medicine; Referring Provider Family Medicine; Visit Provider Family Medicine
DX: Z12.31 Encounter for screening mammogram for malignant neoplasm of breast; Z12.11 Encounter for screening for malignant neoplasm of colon; Z85.3 Personal history of malignant neoplasm of breast; Z90.11 Acquired absence of right breast and nipple
CPT/HCPCS: 77063; 77067; 82274

== ENCOUNTER → 2020-01-17 13:56 | Outpatient (CLI) | payer OTHER, MEDICAID, SELFPAY ==
--- NOTE | 2020-01-17 13:58 | DI.RAD.S_ITS ---
PROCEDURE: XR ACUTE ABDOMEN SERIES INDICATIONS: LLQ pain x 3 weeks TECHNIQUE: One view chest and two views of the abdomen were acquired. COMPARISON: None. FINDINGS: Surgical changes and devices: None. Chest: Lungs are clear. Heart size is normal. No pleural effusions. No pneumoperitoneum. Abdomen: Bowel gas pattern is normal except for mild generalized colonic obstipation. No suspicious calcifications. Visualized solid organ contours appear normal. Bones: No suspicious bony lesions. IMPRESSION: Mild colonic obstipation, no sign of intestinal obstruction or perforation. Depending on the clinical status follow-up by CT scanning may become necessary. Dictated by: Robson Colbert M.D. on 01/17/2020 at 16:24 Approved by: Robson Colbert M.D. on 01/17/2020 at 16:24
== END ==
PROVIDERS: PCP Family Medicine; Referring Provider Registered Nurse Diabetes Educator; Visit Provider Registered Nurse Diabetes Educator
DX: R10.32 Left lower quadrant pain (principal); K59.00 Constipation, unspecified
CPT/HCPCS: 74022

== ENCOUNTER → 2020-01-24 10:57 | Outpatient (CLI) | payer OTHER, MEDICAID, SELFPAY ==
--- NOTE | 2020-01-24 10:58 | DI.US.S_ITS ---
PROCEDURE: US PELVIC COMPLETE INDICATIONS: LLQ pain x 3 weeks TECHNIQUE: Real-time scanning was performed of the pelvic organs, with image documentation. Additional endovaginal scanning was necessary due to incomplete visualization of the adnexal and endometrial structures by transabdominal scanning. COMPARISON: [facility], CT, CHEST/ABD/PEL WITH CONTRAST, 12/04/2013, 12:16. [facility], US, US ABDOMEN COMPLETE, 01/24/2020, 11:07. [facility], US, US PELVIC COMPLETE, 01/11/2019, 10:59. FINDINGS: Transabdominal scanning: Limited scanning through the kidneys shows no hydronephrosis. A small amount of free fluid can be seen within the pelvic cul-de-sac. Endovaginal scanning: Uterus: Uterus is normal in size at 7.7 by 4.1 x 5.1 cm. The endometrium measures 8 mm in combined thickness. Ovaries: The right ovary measures 3.4 x 1.3 x 1.5 cm. The left ovary measures 2.5 x 2.1 x 2.2 cm and demonstrates a complex cyst with internal debris that measures 1.8 x 1.9 x 2 cm. No abnormal vascularity can be seen of this cyst. Normal appearing arterial flow can be confirmed to each ovary. The ovaries have a normal sonographic appearance. No adnexal masses are seen. IMPRESSION: A hemorrhagic cyst can be seen within the left ovary, with associated free pelvic fluid. The patient's pain may be related to a ruptured hemorrhagic cyst. At clinical discretion, a followup pelvic ultrasound is suggested in 6 weeks to assure resolution/ improvement. Dictated by: Luis Martinez M.D. on 01/24/2020 at 15:06 Approved by: Luis Martinez M.D. on 01/24/2020 at 15:09
--- NOTE | 2020-01-24 10:58 | DI.US.S_ITS ---
PROCEDURE: US ABDOMEN COMPLETE INDICATIONS: LLQ pain x 3 weeks TECHNIQUE: Real-time scanning was performed of the abdominal and retroperitoneal organs, with image documentation. COMPARISON: [facility], US, US PELVIC COMPLETE, 01/24/2020, 11:33. [facility], CR, XR ACUTE ABDOMEN SERIES, 01/17/2020, 13:53. [facility], CT, CHEST/ABD/PEL WITH CONTRAST, 12/04/2013, 12:16. FINDINGS: Liver: Liver is normal in size and homogeneous in echotexture. Gallbladder: No findings of gallstones or sludge are seen. The gallbladder wall is not thickened, measuring 3 mm or less. No specific pericholecystic fluid is seen. The sonographic Davis sign is negative. Biliary ducts: Intrahepatic bile ducts are non-dilated. Extrahepatic bile duct caliber measures 3 mm. Normal is 6-7 mm or less in diameter, or 10 mm or less post-cholecystectomy. Pancreas: Visualized portions of the pancreas are sonographically normal. Spleen: Spleen is normal in size and homogeneous in echotexture. Kidneys: Kidneys are normal in size and echotexture. Right kidney measures 9.8 cm long; left kidney measures 9.2 cm long. No hydronephrosis or nephrolithiasis. No solid masses. Aorta: Visualized aorta is normal in caliber at less than 3 cm. Iliacs: Proximal common iliac arteries are normal in caliber at less than 2.5 cm. IVC: Intrahepatic inferior vena cava is patent. Miscellaneous: No free abdominal fluid. IMPRESSION: Unremarkable abdominal ultrasound, without an imaging explanation found for the patient's presenting history of left lower quadrant pain. Dictated by: Luis Martinez M.D. on 01/24/2020 at 15:05 Approved by: Luis Martinez M.D. on 01/24/2020 at 15:05
== END ==
PROVIDERS: PCP Family Medicine; Referring Provider Registered Nurse Diabetes Educator; Visit Provider Registered Nurse Diabetes Educator
DX: R10.32 Left lower quadrant pain (principal); N83.202 Unspecified ovarian cyst, left side
CPT/HCPCS: 76700; 76830; 76856

== ENCOUNTER → 2020-03-05 14:58 | Outpatient (CLI) | payer OTHER, MEDICAID, SELFPAY ==
--- NOTE | 2020-03-05 15:03 | DI.US.S_ITS ---
7PROCEDURE: US PELVIC COMPLETE INDICATIONS: f/u hemorrhagic L ovarian cyst TECHNIQUE: Real-time scanning was performed of the pelvic organs, with image documentation. Additional endovaginal scanning was necessary due to incomplete visualization of the adnexal and endometrial structures by transabdominal scanning. COMPARISON: [facility], , US PELVIC COMPLETE, 01/24/2020, 11:33. FINDINGS: Transabdominal scanning: Limited scanning through the kidneys shows no hydronephrosis. No pathologic free abdominal or pelvic fluid. Endovaginal scanning: Uterus: Uterus is normal in size at 8.0 x 4.73.6 cm. The endometrium measures 12-13 mm in combined thickness. Ovaries: Right ovary measures 4.4 x 2.3 x 2.8 cm. New right ovarian cyst measures 3 cm. Left ovary measures 3.9 x 2.6 x 3.4 cm. Unchanged left ovarian cyst with internal debris measuring approximately 1.8 cm. Doppler interrogation demonstrates expected waveforms in both ovaries. IMPRESSION: Interval development of 3 cm right ovarian cyst, although largely simple appearance. Recommend follow-up in 6 weeks to assess for resolution or improvement. Unchanged left ovarian cyst with internal echoes/debris.Recommend continued sonographic surveillance. Dictated by: Dar Brady M.D. on 03/05/2020 at 17:22 Approved by: Dar Brady M.D. on 03/05/2020 at 17:26
== END ==
PROVIDERS: PCP Family Medicine; Referring Provider Registered Nurse Diabetes Educator; Visit Provider Registered Nurse Diabetes Educator
DX: N83.02 Follicular cyst of left ovary (principal); N83.201 Unspecified ovarian cyst, right side
CPT/HCPCS: 76830; 76856

== ENCOUNTER → 2020-04-24 08:10 | Outpatient (CLI) | payer OTHER, MEDICAID, SELFPAY ==
[2020-04-24 09:00] LABS: BUN Creatinine Ratio 33.3 (6-22); Blood Urea Nitrogen 16 mg/dL (7-17); Calcium 9.6 mg/dL (8.4-10.2); Carbon Dioxide 31 mmol/L (22-32); Chloride 104 mmol/L (98-107); Cholesterol 239 mg/dL (140-199); Estimated Glomerular Filt Rate > 60.0 mL/min (>60); Glucose 92 mg/dL (70-100); HDL Cholesterol 91 mg/dL (40-60); HEMOLYSIS < 15 (0-50); LDL Cholesterol Calculated 131 mg/dL (<100); Potassium 3.7 mmol/L (3.4-5.1); Sodium 138 mmol/L (137-145); Triglycerides 83 mg/dL (35-150)
[2020-04-24 09:32] LABS: Cancer Antigen 125 8.6 U/mL (0-35)
[2020-04-26 12:36] LABS: Human Epididymis Prot 4 50.6 pmol/L (0.0-105.2)
== END ==
PROVIDERS: PCP Family Medicine; Referring Provider Family Medicine; Visit Provider Family Medicine
DX: N83.209 Unspecified ovarian cyst, unspecified side (principal); E78.5 Hyperlipidemia, unspecified
CPT/HCPCS: 36415; 80048; 80061; 86304; 86305

== ENCOUNTER → 2020-09-18 12:41 | Outpatient (CLI) | payer OTHER, MEDICAID, SELFPAY ==
--- NOTE | 2020-09-18 12:43 | DI.US.S_ITS ---
PROCEDURE: US PERIPH VENOUS LOW EXTREM RT INDICATIONS: right lower leg pain with swelling TECHNIQUE: Real-time imaging, as well as color and pulse Doppler interrogation, were performed of the lower extremity deep veins from the inguinal ligament to the popliteal fossa. COMPARISON: None. FINDINGS: The common femoral, femoral and popliteal veins are normally compressible, and free of intraluminal thrombus. Color and pulse Doppler demonstrate normal phasic intraluminal flow. There is normal augmentation response to distal compression maneuver. Note is made of left ankle soft tissue edema. An apparent complex Brambila's cyst is seen that measures 6.1 x 3.2 x 1.3 cm, without abnormal vascularity. IMPRESSION: Negative for deep venous thrombosis. Complex Brambila's cyst seen. Dictated by: Luis Martinez M.D. on 09/18/2020 at 12:08 Approved by: Luis Martinez M.D. on 09/18/2020 at 12:09
== END ==
PROVIDERS: PCP Family Medicine; Referring Provider Registered Nurse; Visit Provider Registered Nurse
DX: M79.661 Pain in right lower leg (principal); M79.89 Other specified soft tissue disorders; M71.21 Synovial cyst of popliteal space [Baker], right knee
CPT/HCPCS: 93971

== ENCOUNTER → 2020-12-30 10:42 | Outpatient (CLI) | payer OTHER, MEDICAID, SELFPAY ==
--- NOTE | 2020-12-30 | DI.MG.S_ITS ---
UNILATERAL LEFT DIGITAL SCREENING MAMMOGRAM 3D/2D WITH CAD POST MASTECTOMY: 12/30/2020 CLINICAL: Routine screening. Breast cancer. Family history of breast cancer. Comparison is made to exams dated: 12/28/2019 mammogram, 11/24/2018 mammogram, and 11/23/2017 mammogram - [facility]. The tissue of left breast is extremely dense, which lowers the sensitivity of mammography. Current study was also evaluated with a Computer Aided Detection (CAD) system. There are stable benign calcifications in the left breast. No significant masses, calcifications, or other findings are seen in the breast. There has been no significant interval change. IMPRESSION: BENIGN There is no mammographic evidence of malignancy. A 1 year screening mammogram is recommended. This exam was interpreted at Station ID: [id number]. NOTE: For mammograms, a report in lay terms will be sent to the patient. Approximately 15% of breast malignancies will not be visualized mammographically. In the management of a palpable breast mass, a negative mammogram must not discourage biopsy of a clinically suspicious lesion. Electronically Signed By: Brian sibley/pieter:12/30/2020 11:04:43 letter sent: Normal Exam ACR BI-RADS Category 2: Benign Finding(s) [id number]
== END ==
PROVIDERS: PCP Family Medicine; Referring Provider Family Medicine; Visit Provider Family Medicine
DX: Z12.31 Encounter for screening mammogram for malignant neoplasm of breast (principal); Z85.3 Personal history of malignant neoplasm of breast; Z80.3 Family history of malignant neoplasm of breast
CPT/HCPCS: 77063; 77067

== ENCOUNTER → 2021-08-14 09:01 | Outpatient (CLI) | payer OTHER, MEDICAID, SELFPAY ==
[2021-08-14 09:20] LABS: Add Manual Diff / Slide Review NO; Basophils Absolute Auto 0 /uL (0-100); Basophils Percent Auto 1.1 % (0-2); Eosinophils Absolute Auto 100 /uL (0-450); Eosinophils Percent Auto 2.5 % (2-4); Hematocrit 35.4 % (36-46); Hemoglobin 12.2 g/dL (12.0-16.0); Lymphocytes Absolute Auto 1400 /uL (1100-4500); Lymphocytes Percent Auto 32.7 % (25-40); Mean Corpuscular HGB Conc 34.5 % (30-36); Mean Corpuscular Hemoglobin 31.2 PG (26-34); Mean Corpuscular Volume 90.5 fL (80-100); Monocytes Absolute Auto 400 /uL (0-900); Monocytes Percent Auto 10.2 % (3-14); Neutrophils Absolute Auto 2300 /uL (1500-7000); Neutrophils Percent Auto 53.5 % (50-75); Platelet Count 215 X10^3/uL (150-400); Red Blood Cell Count 3.91 X10^6/uL (4.0-5.2); Red Cell Distribution Width 12.7 % (11.6-14.8); White Blood Cell Count 4.2 X10^3/uL (4.5-11.0)
[2021-08-14 09:47] LABS: Alanine Aminotransferase 19 IU/L (<35); Albumin 4.3 g/dL (3.5-5.0); Albumin Globulin Ratio 1.9 (1.0-2.8); Alkaline Phosphatase 51 U/L (38-126); Aspartate Aminotransferase 29 IU/L (14-36); BUN Creatinine Ratio 28.3 (6-22); Bilirubin Total 0.6 mg/dL (0.2-1.3); Blood Urea Nitrogen 15 mg/dL (7-17); Carbon Dioxide 27 mmol/L (22-32); Chloride 105 mmol/L (98-107); Cholesterol 244 mg/dL (140-199); Estimated Glomerular Filt Rate > 60.0 mL/min (>60); Globulin 2.3 g/dL (1.7-4.1); Glucose 93 mg/dL (70-100); HDL Cholesterol 94 mg/dL (40-60); HEMOLYSIS < 15 (0-50); LDL Cholesterol Calculated 141 mg/dL (<100); Potassium 3.6 mmol/L (3.4-5.1); Sodium 138 mmol/L (137-145); Total Protein 6.6 g/dL (6.3-8.2); Triglycerides 44 mg/dL (35-150)
[2021-08-14 10:17] LABS: Cortisol AM (Before 10AM) 11.6 ug/dL (4.46-22.7); TSH w/ Reflex to FT4 1.47 uIU/mL (0.47-4.68)
== END ==
PROVIDERS: PCP Family Medicine; Referring Provider Family Medicine; Visit Provider Family Medicine
DX: E78.2 Mixed hyperlipidemia (principal); L30.9 Dermatitis, unspecified; R53.83 Other fatigue
CPT/HCPCS: 36415; 80053; 80061; 82533; 84443; 85025

== ENCOUNTER → 2021-11-24 10:22 | Outpatient (CLI) | payer OTHER, MEDICAID, SELFPAY ==
--- NOTE | 2021-11-24 10:26 | DI.RAD.S_ITS ---
PROCEDURE: XR LUMBAR SPINE 2-3V INDICATIONS: Right foot paresthesias TECHNIQUE: 3 views of the lumbar spine were acquired. COMPARISON: None. FINDINGS: Bones: 5 [id number] vertebrae are present. There is normal bony alignment. No vertebral body compression fractures. No suspicious bony lesions. Facet hypertrophy is seen throughout the lumbar spine. Mild disc space narrowing is seen at L5-S1. Soft tissues: Overlying bowel gas pattern is normal. No suspicious soft tissue calcifications. IMPRESSION: Moderate multilevel spondylosis. No acute osseous abnormality. If the symptoms persist, consider cross sectional imaging such as MRI or CT for further assessment. Dictated by: Brian Hall M.D. on 11/24/2021 at 11:45 Approved by: Brian Hall M.D. on 11/24/2021 at 11:47
== END ==
PROVIDERS: PCP Pediatrics; Referring Provider Pediatrics; Visit Provider Pediatrics
DX: Z13.820 Encounter for screening for osteoporosis (principal); N95.9 Unspecified menopausal and perimenopausal disorder; M47.816 Spondylosis without myelopathy or radiculopathy, lumbar region; M85.88 Other specified disorders of bone density and structure, other site; R20.2 Paresthesia of skin; Z85.3 Personal history of malignant neoplasm of breast
CPT/HCPCS: 72100; 77080

== ENCOUNTER → 2021-12-31 09:27 | Outpatient (CLI) | payer OTHER, MEDICAID, SELFPAY ==
--- NOTE | 2021-12-31 | DI.MG.S_ITS ---
UNILATERAL LEFT DIGITAL SCREENING MAMMOGRAM 3D/2D WITH CAD: 12/31/2021 CLINICAL: Routine screening. Personal history of left breast cancer. Family history of breast cancer. Comparison is made to exams dated: 12/30/2020 mammogram, 12/28/2019 mammogram, and 11/24/2018 mammogram - [facility]. The tissue of left breast is heterogeneously dense. This may lower the sensitivity of mammography. Current study was also evaluated with a Computer Aided Detection (CAD) system. No significant masses, calcifications, or other findings are seen in the breast. There has been no significant interval change. IMPRESSION: NEGATIVE There is no mammographic evidence of malignancy. A 1 year screening mammogram is recommended. This exam was interpreted at Station ID: [id number]. NOTE: For mammograms, a report in lay terms will be sent to the patient. Approximately 15% of breast malignancies will not be visualized mammographically. In the management of a palpable breast mass, a negative mammogram must not discourage biopsy of a clinically suspicious lesion. Electronically Signed By: Coy montoya/pieter:12/31/2021 11:16:53 letter sent: Normal Exam ACR BI-RADS Category 1: Negative 3341F
== END ==
PROVIDERS: PCP Pediatrics; Referring Provider Pediatrics; Visit Provider Pediatrics
DX: Z12.31 Encounter for screening mammogram for malignant neoplasm of breast (principal); Z85.3 Personal history of malignant neoplasm of breast; Z80.3 Family history of malignant neoplasm of breast
CPT/HCPCS: 77063; 77067

== ENCOUNTER → 2022-07-02 09:04 | Outpatient (CLI) | payer OTHER, MEDICAID, SELFPAY ==
[2022-07-02 11:50] LABS: Hematocrit 38.8 % (36-46); Hemoglobin 13.2 g/dL (12.0-16.0); Mean Corpuscular Hemoglobin 31.1 PG (26-34); Mean Corpuscular Volume 91.4 fL (80-100); Platelet Count 230 X10^3/uL (150-400); Red Blood Cell Count 4.25 X10^6/uL (4.0-5.2); Red Cell Distribution Width 12.6 % (11.6-14.8)
[2022-07-02 12:16] LABS: Alanine Aminotransferase 21 IU/L (<35); Albumin 4.3 g/dL (3.5-5.0); Albumin Globulin Ratio 1.7 (1.0-2.8); Alkaline Phosphatase 58 U/L (38-126); Aspartate Aminotransferase 27 IU/L (14-36); BUN Creatinine Ratio 32.1 (6-22); Bilirubin Total 0.7 mg/dL (0.2-1.3); Blood Urea Nitrogen 17 mg/dL (7-17); Calcium 9.1 mg/dL (8.4-10.2); Carbon Dioxide 32 mmol/L (22-32); Chloride 100 mmol/L (98-107); Cholesterol 245 mg/dL (140-199); Estimated Glomerular Filt Rate > 60 mL/min (>60); Globulin 2.5 g/dL (1.7-4.1); Glucose 79 mg/dL (70-100); HDL Cholesterol 99 mg/dL (40-60); HEMOLYSIS < 15 (0-50); LDL Cholesterol Calculated 135 mg/dL (<100); Potassium 3.8 mmol/L (3.4-5.1); Sodium 138 mmol/L (137-145); Total Protein 6.8 g/dL (6.3-8.2); Triglycerides 53 mg/dL (35-150)
[2022-07-02 12:21] LABS: HEMOLYSIS < 15 (0-50); Iron 135 ug/dL (37-170)
[2022-07-02 12:30] LABS: Free T3, Triiodothyronine Free 3.99 pg/mL (2.77-5.27); Free T4, Direct Thyroxine 1.22 ng/dL (0.78-2.19)
[2022-07-02 12:31] LABS: Percent Iron Saturation 42 % (15-50); Total Iron Binding Capacity 320 ug/dL (265-497); Transferrin 259 mg/dL (206-381)
[2022-07-02 12:43] LABS: Thyroid Stimulating Hormone 1.09 uIU/mL (0.47-4.68)
[2022-07-03 09:56] LABS: Insulin Level Total 2.5 uIU/mL (2.6-24.9)
== END ==
PROVIDERS: PCP Family Medicine; Referring Provider Family Medicine; Visit Provider Family Medicine
DX: D05.10 Intraductal carcinoma in situ of unspecified breast (principal); D64.9 Anemia, unspecified; E78.2 Mixed hyperlipidemia; N92.6 Irregular menstruation, unspecified
CPT/HCPCS: 36415; 80053; 80061; 83525; 83540; 83550; 84439; 84443; 84481; 85027

== ENCOUNTER 2022-10-26 09:46 | Day surgery (SDC) | payer OTHER, MEDICAID, SELFPAY ==
[2022-10-26 10:01] VITALS: BP 122/80; PULSE 71; RESP 17; TEMP 36.1; O2SAT 97; BMI 24.7
[2022-10-26] MEDS: LACTATED RINGERS 1,000 ML 200 ML IV (10:15)
--- NOTE | 2022-10-26 11:00 | P.HP_ITS ---
History of Present Illness History of Present Illness Date Patient Seen: 10/26/22 Time Patient Seen: 11:00 Chief complaint: Colonoscopy Narrative: 52-year-old woman here for screening colonoscopy. Last colonoscopy 2006 normal. No family history of intestinal malignancy. Occasionally she has left lower quadrant discomfort no unintentional weight loss blood per rectum. FOR[facility]LY [facility] Medical History (Updated 08/09/22 @ 16:34 by Lizette Valencia DO) Abnormal Pap smear of cervix Acne (~1986) Breast cancer (~2013) Chickenpox (~1978) Depression (~1983) Eczema (~1999) Family history of ovarian cancer Positive PPD (~1995) Seasonal allergies Surgical History (Updated 10/20/22 @ 15:27 by Lizette Valencia DO) Anesthesia History of biopsy Status post biopsy Status post breast lumpectomy (~2013) Status post breast lumpectomy (~2013) Status post colonoscopy (~2005) Status post partial mastectomy (~2013) Family History Father Depression Hypertension BRCA gene positive Mental health problem Grandfather CVA (cerebral infarction) Grandmother CVA (cerebral infarction) Mother Age: 79 Basal cell cancer Hyperlipidemia Grandfather Breast cancer Prostate cancer Heart disease Grandmother Stroke Sister Proctitis Social History household members: spouse Smoking Status: Never smoker alcohol intake: current Meds Home Medications and Allergies Home Medications Medication Instructions Recorded Confirmed Type cholecalciferol (vitamin D3) 25 1,000 unit PO DAILY 12/05/17 10/26/22 History mcg (1,000 unit) tablet (Vitamin D3) melatonin 5 mg tablet 5 mg PO BEDTIME PRN Insomnia 12/05/17 10/26/22 History ascorbate calcium (vitamin C) 500 500 mg PO DAILY 10/30/19 10/26/22 History mg tablet collogen PO 10/30/19 06/11/22 History Allergies Allergy/AdvReac Type Severity Reaction Status Date / Time No Known Drug Allergies Allergy Verified 06/11/22 13:39 Exam Vital Signs (past 8 hours): - 10/26/22 10:01 Temperature 97 F L Pulse Rate 71 Respiratory Rate 17 Blood Pressure 122/80 Pulse Oximetry 97 Oxygen Delivery Method Room Air Oxygen Delivery Method Room Air Narrative Exam Narrative: General adult woman alert oriented no acute distress Extremities warm well perfused Assessment & Plan Assessment & Plan narrative: The patient requires colorectal screening and colonoscopy is recommended. Technical details were discussed. Risks, benefits, alternatives explained. Risks including but not limited to myocardial infarction, aspiration, bleeding, pain, missed lesion, incomplete examination, need for further radiographic studies, colonic perforation, and need for major abdominal surgery were discussed. All questions were answered to their satisfaction, and they are in agreement with this plan.
[2022-10-26 11:27] VITALS: BP 127/80; PULSE 65; RESP 17; O2SAT 100
[2022-10-26 11:31] VITALS: BP 122/70; PULSE 70; RESP 14; TEMP 36.8; O2SAT 98
--- NOTE | 2022-10-26 11:35 | PM.OP.COLON ---
Operative Date/Time/Diagnoses Date of procedure: 10/26/22 Time of procedure: 11:35 Pre-op diagnosis: Colorectal screening Post-op diagnosis: same Procedure & Clinicians Study performed: Colonoscopy Same procedure as scheduled: Yes Indications: Colorectal screening Surgeon: Saleem Rod Procedure Notes Procedure in detail: The history and physical was performed/updated and the patient is ASA class is 2. The procedure was discussed in detail with the patient. Potential risks complications including infection, bleeding, missed diagnosis, perforation, need for surgery, and were explained. Their questions were answered and informed consent was obtained. Patient was brought to the procedure room and placed standard monitoring equipment. The patient's vital signs were monitored continuously throughout the entire procedure. Prior to starting time-out was performed. The patient was placed in the left lateral recumbent position. Procedural sedation was administered by anesthesia. Examination began with a thorough inspection of the perianal area there was no evidence of fissures, fistulae, external hemorrhoids or cutaneous malignancy. The colonoscopy scope was then placed into the anal canal and was advanced to the cecum, which was identified by the ileocecal valve, the appendiceal orifice and the confluence of the taenia. The scope was then slowly withdrawn examining colon thoroughly in all directions, irrigating it of any residual stool. Normal colonoscopy. No masses polyps or inflammation. Grade 1 internal hemorrhoids on retroflexion within rectum The patient tolerated the procedure well. They will be discharged once criteria are met. The prep was of good/excellent quality. The withdrawl time was 8 minutes. Specimen(s): none sent Impression: Normal colonoscopy Post-procedure Recommendations: Colonoscopy in 10 years Disposition: same day surgery
[2022-10-26 11:40] VITALS: BP 129/83; PULSE 59; RESP 13; O2SAT 100
[2022-10-26 11:43] VITALS: BP 139/81; PULSE 58; RESP 14; O2SAT 100
== END 2022-10-26 12:00 | disposition home or self-care (01) ==
PROVIDERS: PCP Family Medicine; Referring Provider Surgery; Visit Provider Surgery
PROC: 0DJD8ZZ Inspection of Lower Intestinal Tract, Via Natural or Artificial Opening Endoscopic (ICD-10-PCS; CPT 45378; principal; 2022-10-26 10:45)
DX: Z12.11 Encounter for screening for malignant neoplasm of colon (principal); K64.0 First degree hemorrhoids
CPT/HCPCS: 45378; J2704

== ENCOUNTER → 2023-01-03 08:13 | Outpatient (CLI) | payer OTHER, MEDICAID, SELFPAY ==
--- NOTE | 2023-01-03 | DI.MG.S_ITS ---
UNILATERAL LEFT DIGITAL SCREENING MAMMOGRAM 3D/2D WITH CAD: 01/03/2023 CLINICAL: Routine screening. Breast cancer. Comparison is made to exams dated: 12/31/2021 mammogram, 12/30/2020 mammogram, and 12/28/2019 mammogram - [facility]. The left breast is heterogeneously dense, which may obscure small masses (category c / 51-75% glandular tissue). Current study was also evaluated with a Computer Aided Detection (CAD) system. No significant masses, calcifications, or other findings are seen in the breast. There has been no significant interval change. IMPRESSION: NEGATIVE There is no mammographic evidence of malignancy. A 1 year screening mammogram is recommended. This exam was interpreted at Station ID: [id number]. NOTE: For mammograms, a report in lay terms will be sent to the patient. Approximately 15% of breast malignancies will not be visualized mammographically. In the management of a palpable breast mass, a negative mammogram must not discourage biopsy of a clinically suspicious lesion. Electronically Signed By: Renetta black/pieter:01/03/2023 14:27:18 letter sent: Normal Exam ACR BI-RADS Category 1: Negative 3341F
== END ==
PROVIDERS: PCP Family Medicine; Referring Provider Family Medicine; Visit Provider Family Medicine
DX: Z12.31 Encounter for screening mammogram for malignant neoplasm of breast (principal); Z85.3 Personal history of malignant neoplasm of breast
CPT/HCPCS: 77063; 77067

== ENCOUNTER → 2023-07-05 12:57 | Outpatient (CLI) | payer OTHER, SELFPAY ==
--- NOTE | 2023-07-05 | DI.US.S_ITS ---
PROCEDURE: US PELVIC COMPLETE INDICATIONS: Pelvic and perineal pain TECHNIQUE: Real-time scanning was performed of the pelvic organs, with image documentation. Additional endovaginal scanning was necessary due to incomplete visualization of the adnexal and endometrial structures by transabdominal scanning. COMPARISON: [facility], US, US PELVIC COMPLETE, 03/05/2020, 15:54. FINDINGS: Uterus: Uterus is anteverted and normal in size at 6.3 x 3.2 x 3.7 cm. The myometrium is homogeneous. The endometrium was not visualized. Ovaries: The right ovary measures 1.9 x 1.1 x 2.0 cm, with a calculated ovarian volume of 1.1 cc. The left ovary measures 1.6 x 1.1 x 1.7 cm, with a calculated ovarian volume of 2.9 cc. The ovaries have a normal sonographic appearance. Less than 12 follicles can be seen in each ovary. No adnexal masses are seen. Other: No pathologic free abdominal or pelvic fluid. IMPRESSION: Nonvisualized endometrium. Otherwise unremarkable ultrasound the pelvis Approved by: Paul Greene M.D. on 07/05/2023 at 19:09
== END ==
PROVIDERS: PCP Family Medicine; Referring Provider Naturopath; Visit Provider Naturopath
DX: R10.2 Pelvic and perineal pain (principal)
CPT/HCPCS: 76856

== ENCOUNTER → 2023-11-22 07:49 | Outpatient (CLI) | payer OTHER, SELFPAY ==
[2023-11-22 08:43] LABS: Add Manual Diff / Slide Review NO; Basophils Absolute Auto 100 /uL (0-100); Basophils Percent Auto 1.2 % (0-2); Eosinophils Absolute Auto 100 /uL (0-450); Eosinophils Percent Auto 2.7 % (2-4); Hematocrit 38.3 % (36-46); Hemoglobin 12.9 g/dL (12.0-16.0); Lymphocytes Absolute Auto 1500 /uL (1100-4500); Lymphocytes Percent Auto 30.1 % (25-40); Mean Corpuscular HGB Conc 33.8 % (30-36); Mean Corpuscular Hemoglobin 30.8 PG (26-34); Mean Corpuscular Volume 91.1 fL (80-100); Monocytes Absolute Auto 500 /uL (0-900); Monocytes Percent Auto 9.3 % (3-14); Neutrophils Absolute Auto 2900 /uL (1500-7000); Neutrophils Percent Auto 56.7 % (50-75); Platelet Count 232 X10^3/uL (150-400); Red Cell Distribution Width 12.5 % (11.6-14.8); White Blood Cell Count 5.1 X10^3/uL (4.5-11.0)
[2023-11-22 09:09] LABS: Alanine Aminotransferase 24 IU/L (<35); Albumin 4.6 g/dL (3.5-5.0); Albumin Globulin Ratio 1.7 (1.0-2.8); Alkaline Phosphatase 62 U/L (38-126); Aspartate Aminotransferase 35 IU/L (14-36); BUN Creatinine Ratio 20.6 (6-22); Bilirubin Total 0.8 mg/dL (0.2-1.3); Blood Urea Nitrogen 13 mg/dL (7-17); Calcium 9.3 mg/dL (8.4-10.2); Carbon Dioxide 31 mmol/L (22-32); Chloride 104 mmol/L (98-107); Cholesterol 262 mg/dL (140-199); Estimated Glomerular Filt Rate > 60 mL/min (>60); Globulin 2.7 g/dL (1.7-4.1); Glucose 101 mg/dL (70-100); HDL Cholesterol 93 mg/dL (40-60); HEMOLYSIS < 15 (0-50); LDL Cholesterol Calculated 157 mg/dL (<100); Sodium 139 mmol/L (137-145); Total Protein 7.3 g/dL (6.3-8.2); Triglycerides 60 mg/dL (35-150)
[2023-11-22 09:26] LABS: Free T4, Direct Thyroxine 1.11 ng/dL (0.78-2.19)
[2023-11-22 09:40] LABS: Thyroid Stimulating Hormone 2.17 uIU/mL (0.47-4.68)
[2023-11-22 09:44] LABS: Ferritin 33 ng/mL (11-264)
[2023-11-25 03:10] LABS: Lipoprotein (a) 33.7 nmol/L (<75.0)
== END ==
PROVIDERS: PCP Family Medicine; Referring Provider Naturopath; Visit Provider Naturopath
DX: Z00.00 Encounter for general adult medical examination without abnormal findings (principal); E61.1 Iron deficiency; E78.00 Pure hypercholesterolemia, unspecified
CPT/HCPCS: 36415; 80053; 80061; 82728; 83695; 84439; 84443; 85025

== ENCOUNTER → 2024-01-26 08:25 | Outpatient (CLI) | payer BC, SELFPAY ==
--- NOTE | 2024-01-26 | DI.MG.S_ITS ---
UNILATERAL LEFT DIGITAL SCREENING MAMMOGRAM 3D/2D WITH CAD: 01/26/2024 CLINICAL: Routine screening. Personal history of right breast cancer. Comparison is made to exams dated: 01/03/2023 mammogram, 12/31/2021 mammogram, and 12/30/2020 mammogram - [facility]. The breasts are heterogeneously dense, which may obscure small masses (category c / 51-75% glandular tissue). Current study was also evaluated with a Computer Aided Detection (CAD) system. No significant masses, calcifications, or other findings are seen in the breast. There has been no significant interval change. IMPRESSION: NEGATIVE There is no mammographic evidence of malignancy. A 1 year screening mammogram is recommended. This exam was interpreted at Station ID: [id number]. NOTE: For mammograms, a report in lay terms will be sent to the patient. Approximately 15% of breast malignancies will not be visualized mammographically. In the management of a palpable breast mass, a negative mammogram must not discourage biopsy of a clinically suspicious lesion. Electronically Signed By: Cory johnson/pieter:01/26/2024 09:05:17 letter sent: Normal Exam ACR BI-RADS Category 1: Negative 3341F
== END ==
LOC: MAMMO 08:25
PROVIDERS: PCP Family Medicine; Referring Provider Family Medicine; Visit Provider Family Medicine
DX: Z12.31 Encounter for screening mammogram for malignant neoplasm of breast (principal); Z85.3 Personal history of malignant neoplasm of breast; R92.333 Mammographic heterogeneous density, bilateral breasts
CPT/HCPCS: 77063; 77067

== ENCOUNTER → 2025-02-28 08:12 | Outpatient (CLI) | payer OTHER, SELFPAY ==
--- NOTE | 2025-02-28 08:17 | DI.MG.S_ITS ---
MM screening mammo unilat LT: 02/28/2025. BI-RADS: 0 CLINICAL: 54-year old female for left screening mammogram. No Tyrer-Cuzick risk score calculation due to the patient's personal history of breast cancer. Patient reports a history of left breast carcinoma diagnosed at age 43. Status-post right mastectomy. No first-degree family history of breast cancer. The patient had a prior right breast biopsy. PRIOR EXAMS 01/26/2024, 01/03/2023, 12/31/2021, 12/30/2020. MAMMOGRAPHY TECHNIQUE: 2D and 3D (tomosynthesis) digital mammographic views obtained, with additional images as needed for full coverage. Current study was also evaluated with a Computer Aided Detection (CAD) system. DENSITY Left: C. The breast is heterogeneously dense, which may obscure small masses. MAMMOGRAPHY FINDINGS Left: Upper Outer Quadrant, Middle depth: Calcifications needing additional imaging evaluation. IMPRESSION: Left (Calcification): Upper Outer Quadrant, Middle depth * Incomplete - calcification needing additional imaging evaluation. RECOMMENDATIONS Left: Upper Outer Quadrant, Middle depth * Further evaluation with diagnostic mammography. OVERALL ASSESSMENT CATEGORY BI-RADS-0: Incomplete - Need Additional Imaging Evaluation. ELECTRONICALLY SIGNED: Bina Gilliam M.D. on 02/28/2025 at 04:40:46 PM PT Interpreting Station ID: [id number]
== END ==
DX: Z12.31 Encounter for screening mammogram for malignant neoplasm of breast (principal); R92.332 Mammographic heterogeneous density, left breast; R92.1 Mammographic calcification found on diagnostic imaging of breast; Z90.11 Acquired absence of right breast and nipple
CPT/HCPCS: 77063; 77067

== ENCOUNTER → 2025-03-19 12:01 | Outpatient (CLI) | payer OTHER, SELFPAY ==
--- NOTE | 2025-03-19 12:02 | DI.MG.S_ITS ---
MM diagnostic mammo unilat LT: 03/19/2025. BI-RADS: 2
== END ==
LOC: MAMMO 12:02
DX: R92.8 Other abnormal and inconclusive findings on diagnostic imaging of breast (principal); R92.332 Mammographic heterogeneous density, left breast; Z85.3 Personal history of malignant neoplasm of breast; Z90.11 Acquired absence of right breast and nipple
CPT/HCPCS: 77065; G0279